=== PATIENT | female | born 1995 | race Caucasian/White ===

== ENCOUNTER 2023-09-14 20:12 | Emergency (ER) | payer BC ==
[2023-09-14] MEDS: Lidocaine 2% Viscous Solution 15 ML UD PO ONE (21:34)
[2023-09-14] MEDS: Amoxicillin/Clavulanate K 875-125 MG Tab PO ONE (21:34)
== END 2023-09-14 22:15 | disposition home or self-care (01) ==
LOC: FB.ED 20:12
DX: K04.7 Periapical abscess without sinus (principal); G89.29 Other chronic pain; Z79.899 Other long term (current) drug therapy
CPT/HCPCS: 99282; 99283; A9270